=== PATIENT | male | born 1995 | race Caucasian/White ===

== ENCOUNTER 2017-07-30 11:16 | Emergency (ER) | payer BC ==
[~2017-07-30] VITALS: Ht 172.7 cm; Wt 60.0 kg
[2017-07-30 12:00] VITALS: BP 105/65
== END 2017-07-30 12:04 | disposition home or self-care (01) ==
LOC: ED 12:02
DX: Z76.0 Encounter for issue of repeat prescription (principal); B35.4 Tinea corporis
CPT/HCPCS: 99282

== ENCOUNTER 2017-08-14 15:21 | Emergency (ER) | payer BC ==
[~2017-08-14] VITALS: Ht 175.3 cm; Wt 62.6 kg
[2017-08-14 16:09] VITALS: BP 110/73
== END 2017-08-14 16:11 | disposition home or self-care (01) ==
LOC: ED 15:45
DX: Z76.0 Encounter for issue of repeat prescription (principal); B35.4 Tinea corporis; J45.909 Unspecified asthma, uncomplicated
CPT/HCPCS: 99283

== ENCOUNTER 2017-08-20 13:02 | Emergency (ER) | payer BC ==
[~2017-08-20] VITALS: Ht 172.7 cm; Wt 62.0 kg
[2017-08-20 13:05] VITALS: BP 127/73
== END 2017-08-20 15:17 | disposition home or self-care (01) ==
LOC: ED 15:11
DX: B35.9 Dermatophytosis, unspecified (principal); J45.40 Moderate persistent asthma, uncomplicated
CPT/HCPCS: 99283